=== PATIENT | male | born 1960 | race Caucasian/White ===

== ENCOUNTER 2019-09-09 07:08 | Outpatient (CLI) | payer OTHER, SELFPAY ==
--- NOTE | ~2019-09-09 | CT_ITS ---
EXAMINATION: CT abdomen pelvis w con DATE: 09/09/2019 07:43 INDICATION: Anal cancer restaging TECHNIQUE: Computed tomography (CT) of the abdomen and pelvis was performed with 100 cc Omnipaque 350 intravenous contrast. Automated exposure control and iterative reconstruction technique were employe d. Exam dose: 491.30 mGy-cm total exam DLP. COMPARISON: 01/22/2019 CT abdomen pelvis 03/13/2018 PET/CT scan 07/02/2018 CT abdomen pelvis FINDINGS: The lung bases are clear. Normal heart size. No pericardial or pleural effusion. There is no significant change is previously reported approximately 8 small hypoattenuating lesions o f the liver; stability since 01/22/2019 and lack of apparent enhancement favor benign stable hepatic c ysts. No interval hepatic space-occupying mass lesion is detected. Normal splenic size. No pancreatic mass lesion, calcification or ductal dilatation. The gallbladder is contracted. No bile duct dilatation. The adrenal glands appear normal. Stable 7 mm nonobstructing left renal calculus. No renal mass lesion or ureteral calculus or hydroure teronephrosis. There is diffuse mild thickening of the urinary bladder wall. The prostate gland and s eminal vesicles appear unremarkable. There is atherosclerotic calcification of the abdominal aorta and branches but no abdominal aortic an eurysm. No intraperitoneal or retroperitoneal or pelvic mass lesion or adenopathy or ascites. No bowel obstruction, pneumatosis or intraperitoneal free air. Stable mild rectal wall thickening compared to 01/22/2019, which may be related to postsurgical and/or postradiation change. No interval new soft tissue thickening of the bowel wall is detected. Normal a ppendix. Status post left inguinal herniorrhaphy. No suspicious osteolytic or osteoblastic lesions are identified. Scattered small osteosclerotic lesio ns are likely bone islands, stable since prior examinations. IMPRESSION: No apparent recurrent or metastatic disease; no significant change since 01/22/2019 Reviewed, dictated and finalized at [facility]. Reviewed, dictated and finalized at [facility].
[2019-09-09 07:32] LABS: Estimated Glomerular Filt Rate > 60
== END 2019-09-09 07:09 | disposition home or self-care (01) ==
PROVIDERS: PCP Internal Medicine; Visit Provider Internal Medicine Hematology & Oncology
DX: C21.0 Malignant neoplasm of anus, unspecified (principal)
CPT/HCPCS: 36415; 74177; Q9967

== ENCOUNTER 2019-09-19 09:43 | Outpatient (CLI) | payer OTHER, SELFPAY ==
[2019-09-19 09:56] LABS: Basophils Percent Auto 0.3 % (0.2-1.2); Eosinophils Absolute Auto 0.2 K/mm3 (0-0.3); Eosinophils Percent Auto 2.4 % (0-4.4); Hematocrit 38.7 % (42.0-52.0); Immature Granulocyte Absolute 0.02 K/mm3 (0.00-0.031); Immature Granulocyte Percent A 0.3 % (0-0.5); Lymphocytes Absolute Auto 0.84 K/mm3 (0.9-3.2); Lymphocytes Percent Auto 11.2 % (18.3-44.2); Mean Corpuscular HGB Conc 33.6 g/dl (32-36); Mean Corpuscular Hemoglobin 34.3 pg (26-34); Mean Corpuscular Volume 102.1 fl (80-100); Mean Platelet Volume 8.3 fl (7.4-10.4); Monocytes Absolute Auto 0.8 K/mm3 (0.1-0.6); Monocytes Percent Auto 11.1 % (2.6-8.5); Neutrophils Absolute Auto 5.6 K/mm3 (1.3-6.7); Neutrophils Percent Auto 74.7 % (45.5-73.1); Platelet Count Result 404 k/mm3 (150-375); Red Blood Count 3.79 M/mm3 (4.6-6.20); Red Cell Distribution Width 12.7 % (11.5-14.5); White Blood Count 7.5 K/mm3 (4.5-10.0)
[2019-09-19 09:59] LABS: Blood Urea Nitrogen 17 mg/dL (8-26); Carbon Dioxide 29 mmol/L (22-30); Chloride 99 mmol/L (98-109); Estimated Glomerular Filt Rate > 60; Glucose 111 mg/dL (70-105); Potassium 3.8 mmol/L (3.5-4.9); Sodium 140 mmol/L (138-146)
[2019-09-19 10:36] LABS: Alanine Aminotransferase 16 U/L (4-50); Albumin Level 4.2 g/dL (3.5-5.1); Alkaline Phosphatase 102 U/L (38-126); Anion Gap 12.2 mmol/L (7-16); Aspartate Amino Transferase 22 U/L (17-59); Bilirubin,Total 0.3 mg/dL (0.2-1.3); Blood Urea Nitrogen 19 mg/dL (9-20); Calcium 9.9 mg/dL (8.4-10.2); Carbon Dioxide 29 mmol/L (22-30); Chloride 101 mmol/L (98-107); Estimated Glomerular Filt Rate > 60; Glucose 112 mg/dL (75-110); Potassium 4.2 mmol/L (3.4-5.0); Sodium 138 mmol/L (137-145)
== END 2019-09-19 09:44 | disposition home or self-care (01) ==
LOC: ANHLAB 09:45
PROVIDERS: PCP Internal Medicine; Visit Provider Internal Medicine Hematology & Oncology
DX: C21.0 Malignant neoplasm of anus, unspecified (principal)
CPT/HCPCS: 36415; 80048; 80053; 85025

== ENCOUNTER 2020-08-19 21:15 | Emergency (ER) | payer SELFPAY ==
--- NOTE | ~2020-08-19 | XR_ITS ---
EXAMINATION: XR chest 2V EXAM DATE: 08/19/2020 21:44 INDICATION: Muscle cramping, weakness, shortness of breath. TECHNIQUE: Frontal and lateral projections of the chest obtained and reviewed. Comparison is made to prior examination from 10/20/2013. FINDINGS: The lungs are clear. There are no pleural effusions. The cardiomediastinal silhouette is within normal limits. There is no pneumothorax suspected. Moderate sized bridging thoracic endplate osteophytes, diffuse idiopathic skeletal hyperostosis. IMPRESSION: No acute cardiopulmonary findings. Reviewed, dictated and finalized at [facility].
[2020-08-19 21:17] VITALS: BP 137/91; PULSE 112; RESP 19; TEMP 36.2; O2SAT 100
[2020-08-19 21:37] LABS: Basophils Percent Auto 0.3 % (0.2-1.2); Eosinophils Percent Auto 0.4 % (0-4.4); Hematocrit 38.8 % (42.0-52.0); Hemoglobin 13.5 g/dL (14.0-18.0); Immature Granulocyte Absolute 0.06 K/mm3 (0.00-0.031); Immature Granulocyte Percent A 0.8 % (0-0.5); Lymphocytes Absolute Auto 0.75 K/mm3 (0.9-3.2); Lymphocytes Percent Auto 10.3 % (18.3-44.2); Mean Corpuscular HGB Conc 34.8 g/dl (32-36); Mean Corpuscular Hemoglobin 35.4 pg (26-34); Mean Corpuscular Volume 101.8 fl (80-100); Mean Platelet Volume 8.9 fl (7.4-10.4); Monocytes Absolute Auto 0.8 K/mm3 (0.1-0.6); Monocytes Percent Auto 10.7 % (2.6-8.5); Neutrophils Absolute Auto 5.7 K/mm3 (1.3-6.7); Neutrophils Percent Auto 77.5 % (45.5-73.1); Platelet Count Result 363 k/mm3 (150-375); Red Blood Count 3.81 M/mm3 (4.6-6.20); Red Cell Distribution Width 12.6 % (11.5-14.5); White Blood Count 7.3 K/mm3 (4.5-10.0)
[2020-08-19 21:48] LABS: Alanine Aminotransferase 149 U/L (4-50); Albumin Level 4.2 g/dL (3.5-5.1); Alkaline Phosphatase 91 U/L (38-126); Anion Gap 10 mmol/L (8-16); Aspartate Amino Transferase 147 U/L (17-59); Blood Urea Nitrogen 15 mg/dL (9-20); Calcium 9.3 mg/dL (8.4-10.2); Carbon Dioxide 23 mmol/L (22-30); Chloride 98 mmol/L (98-107); Estimated CRCL calculation 50 ml/min; Estimated Glomerular Filt Rate 48; Glucose 145 mg/dL (75-110); Potassium 3.6 mmol/L (3.4-5.0); Sodium 131 mmol/L (137-145)
[2020-08-19 21:56] LABS: Magnesium 1.6 mg/dL (1.6-2.3)
[2020-08-19 22:00] VITALS: BP 113/80; PULSE 92; RESP 16; O2SAT 100
--- NOTE | 2020-08-19 22:21 | ED.GENADULT ---
HPI - General Adult General Chief complaint: Unspecified Stated complaint: whole body cramping Time Seen by Provider: 08/19/20 21:44 Source: patient Mode of arrival: ambulatory Limitations: no limitations History of Present Illness HPI narrative: Patient is a 60-year-old male complaining of cramping, upper extremities lower extremities and bilateral flank area that started tonight after working outside in the heat the whole day and noticed that his urine is also dark, claims that he has not drank enough fluid throughout the day. Patient denies any chest pain, shortness of breath, abdominal pain, nausea, vomiting, diarrhea, fever or chills. Related Data Home Medications Medication Instructions Recorded Confirmed lisinopril 20 1 tablet PO DAILY 02/14/19 mg-hydrochlorothiazide 25 mg tablet sildenafil 100 mg tablet 100 mg PO DAILY 02/14/19 Allergies Allergy/AdvReac Type Severity Reaction Status Date / Time No Known Allergies Allergy Verified 08/19/20 21:22 Review of Systems Review of Systems: All systems reviewed & are unremarkable except as noted in HPI and below Constitutional: Constitutional: Denies body ache(s), Denies chills, Denies excessive sweating, Denies fatigue, Denies fever(s), Denies headache(s), Denies lethargy, Denies malaise, Denies weakness and Denies weight loss Eyes: Eyes: Denies blurry vision, Denies change in vision and Denies loss of vision ENT: Denies dizziness, Denies ear discharge, Denies headache(s), Denies lip swelling, Denies epistaxis, Denies nasal congestion, Denies neck pain, Denies throat swelling and Denies tongue swelling Cardiovascular: Cardiovascular: Denies chest pain, Denies chest pain at rest, Denies chest pain with activity, Denies diaphoresis, Denies rapid heart rate, Denies edema, Denies irregular heart rhythm, Denies lightheadedness, Denies palpitations, Denies dyspnea and Denies dyspnea on exertion Respiratory: Respiratory: Denies chest congestion, Denies cough, Denies hemoptysis, Denies dyspnea and Denies dyspnea on exertion Gastrointestinal: Gastrointestinal: Denies abdominal pain, Denies melena, Denies hematochezia, Denies diarrhea, Denies nausea, Denies vomiting and Denies hematemesis Musculoskeletal: Musculoskeletal: Denies abnormal gait, Denies deformity, Denies joint swelling, Denies limited range of motion, Denies neck pain and Denies numbness Neurologic: Denies Abnormal speech present, Denies abnormal gait, Denies confusion, Denies dizziness, Denies headache(s), Denies focal weakness, Denies loss of vision, Denies numbness, Denies Other visual disturbances, Denies Sensory deficit (Neuro) and Denies weakness Psychiatric: Psychiatric: Denies confusion, Denies depression, Denies auditory hallucinations, Denies homicidal ideation and Denies suicidal ideation Endocrine: Endocrine: Denies cold intolerance, Denies excessive sweating, Denies fatigue, Denies heat intolerance and Denies palpitations Hematologic/Lymphatic: Hematologic/Lymphatic: Denies easy bleeding and Denies easy bruising Allergic/Immunologic: Allergic/Immunologic: Denies lip swelling, Denies throat swelling and Denies tongue swelling PMFSH Past Medical History Medical History (Updated 08/19/20 @ 23:35 by Alonso Austin MD) Anal cancer 04/03/18 Squamous cell carcinoma 03/02/18 Surgical History Surgical History History of hernia repair Family History Family History Mother Family history of lung cancer Social History Social History Smoking packs per day: 1 Smoking cigarettes per day: 20.0 Smoking status: Current some day smoker Tobacco type: cigarettes Alcohol intake: current Gender identity (if verbalized by the patient): Male Exam Const: General: cooperative, healthy appearing, comfortable, no acute distress,
[2020-08-19] MEDS: LACTATED RINGERS 1,000 ML 999 ML IV CONT (22:37)
[2020-08-19 22:38] LABS: Creatine Kinase 76 U/L (55-170)
[2020-08-19 23:00] VITALS: BP 132/91; PULSE 87; RESP 16; O2SAT 100
[2020-08-19] MEDS: SODIUM CHLORIDE 0.9% IV 1,000 ML 999 ML IV CONT (23:47)
[2020-08-20] VITALS: BP 139/94; PULSE 80; RESP 16; O2SAT 100
== END 2020-08-20 00:30 | disposition home or self-care (01) ==
PROVIDERS: Emergency Medicine; Emergency Provider Emergency Medicine; PCP Internal Medicine
DX: E86.0 Dehydration (principal); N17.9 Acute kidney failure, unspecified; C21.0 Malignant neoplasm of anus, unspecified; F17.210 Nicotine dependence, cigarettes, uncomplicated
CPT/HCPCS: 36415; 71046; 80053; 82550; 83735; 85025; 96360; 96361; 99283; J7030; J7120

== ENCOUNTER 2021-05-20 10:53 | Emergency (ER) | payer SELFPAY ==
[2021-05-20 10:56] VITALS: BP 161/87; PULSE 112; RESP 20; TEMP 35.9; O2SAT 100
--- NOTE | 2021-05-20 11:06 | PC.NURSE ---
PT REPORTS LUMP TO BACK THAT HAS BEEN THERE FOR YEARS AND HE IS ABLE TO SQUEEZE THICK STINKY WHITE STUFF OUT REPORTS THIS TIME IT IS RED, PAINFUL AND BIGGER. CONCERNED BECAUSE REDNESS STREAKING DOWN BACK
--- NOTE | 2021-05-20 12:04 | ED.SKABFB ---
HPI - Skin/Abscess/Foreign Bdy General Chief complaint: Skin/Abscess/Foreign Body Stated complaint: back abscess Time Seen by Provider: 05/20/21 11:04 History of Present Illness HPI narrative: 61-year-old male presents to the emergency room with a large abscess to his mid thoracic region. Patient states he has had a history of sebaceous cyst in the same area is frequently had to have it lanced and drained. Related Data Home Medications Medication Instructions Recorded Confirmed lisinopril 20 1 tablet PO DAILY 02/14/19 mg-hydrochlorothiazide 25 mg tablet sildenafil 100 mg tablet 100 mg PO DAILY 02/14/19 Allergies Allergy/AdvReac Type Severity Reaction Status Date / Time No Known Allergies Allergy Verified 05/20/21 10:56 Review of Systems Review of Systems: CONSTITUTIONAL: Denies fever, chills, or sweats. EYES: Denies visual changes, redness, or discharge. ENT: Denies rhinorrhea, congestion, sore throat, or otalgia. CARDIOVASCULAR: Denies chest pain, palpitations, or edema. RESPIRATORY: Denies cough or dyspnea. GASTROINTESTINAL: Denies abdominal pain, nausea, vomiting, or diarrhea. GENITOURINARY: Denies dysuria or hematuria. SKIN: Abscess to back MUSCULOSKELETAL: Denies back pain, joint pain, or myalgia. NEUROLOGIC: Denies headache, numbness, dizziness, or weakness. PSYCHIATRIC: Denies anxiety or depression. [facility] Past Medical History Medical History (Updated 05/20/21 @ 12:09 by Carlos Espinosa APRN) Anal cancer 04/03/18 Squamous cell carcinoma 03/02/18 Surgical History Surgical History History of hernia repair Family History Family History Mother Family history of lung cancer Social History Social History Smoking packs per day: 1 Smoking cigarettes per day: 20.0 Smoking status: Current some day smoker Tobacco type: cigarettes Alcohol intake: current Gender identity (if verbalized by the patient): Male Exam Narrative: GENERAL: Well-appearing, well-nourished, and in no acute distress. HEAD: Normocephalic, atraumatic. EYES: PERRLA and EOMI. CHEST: Clear to auscultation. No respiratory distress. No wheezes rales or rhonchi HEART: Regular rate and rhythm. No murmur heard. Normal peripheral pulses. EXTREMITIES: Normal range of motion. No edema. SKIN: 4 cm fluctuant abscess to the mid thoracic area with surrounding erythema. NEURO: No focal deficits. Alert and oriented x3. PSYCH: Normal mood and affect. Course Course Emergency Course: Large abscess was anesthetized with lidocaine 1%. 11 blade scalpel was used to open up the wound. Large amount of purulent drainage was expressed. Quarter-inch iodoform packing used Vital Signs Vital signs: Vital Signs Temperature 35.9 C L 05/20/21 10:56 Pulse Rate 112 H 05/20/21 10:56 Respiratory Rate 20 05/20/21 10:56 Blood Pressure 161/87 H 05/20/21 10:56 Pulse Oximetry 100 05/20/21 10:56 Temperature 35.9 C L 05/20/21 10:56 Pulse Rate 112 H 05/20/21 10:56 Respiratory Rate 20 05/20/21 10:56 Blood Pressure 161/87 H 05/20/21 10:56 Pulse Oximetry 100 05/20/21 10:56 Procedures Abscess I/D back: Date of Incision: 05/20/21 Time of Incision: 12:06 Local Anesthetic: lidocaine 1% and with epi Amount of anesthesia used (mL): 6 Technique: incised with #11 blade Amount of fluid expressed (mL): 10 Irrigation: Yes Packing used?: iodoform I&D Results: Pus Discharge Plan Discharge Clinical Impression: Abscess of skin or subcutaneous tissue Patient Disposition: Home, Self-Care Condition: Stable Instructions: Antibiotic Form, Abscess (ED) Additional Instructions: Follow-up with your primary care doctor tomorrow or the urgent care on Monday to have the packing removed. May take Bunny
[2021-05-20] MEDS: LIDOCAINE/EPINEPHRINE 0.5%/1:200,000 50 ML VIAL (12:17)
[2021-05-20 12:51] VITALS: BP 144/74; PULSE 76; RESP 16; TEMP 36.8; O2SAT 97
== END 2021-05-20 12:52 | disposition home or self-care (01) ==
PROVIDERS: Emergency Provider Nurse Practitioner Family; PCP Internal Medicine
DX: L02.212 Cutaneous abscess of back [any part, except buttock and flank] (principal); Z85.828 Personal history of other malignant neoplasm of skin; Z85.048 Personal history of other malignant neoplasm of rectum, rectosigmoid junction, and anus; F17.210 Nicotine dependence, cigarettes, uncomplicated
CPT/HCPCS: 10061; 99283

== ENCOUNTER 2022-11-18 07:29 | Outpatient (CLI) | payer OTHER, SELFPAY ==
--- NOTE | ~2022-11-18 | CT_ITS ---
EXAMINATION: CT abdomen pelvis w con DATE: 11/18/2022 07:53 INDICATION: History of anal cancer TECHNIQUE: Computed tomography (CT) of the abdomen and pelvis was performed with 100 cc Omnipaque 350 intravenous contrast. The dose-length product was 431.36 mGy-cm. Automated exposure control and iter ative reconstruction technique were employed. COMPARISON: CT dated 09/09/2019 FINDINGS: There are small subcentimeter hypodensities in the liver, too small to characterize, althou gh without significant interval change, most likely benign. The spleen, pancreas, adrenal glands and kidneys are unremarkable. Gallbladder is present. Lung bases are unremarkable. Nonobstructive bowel g as pattern. Moderate colonic fecal loading. There is eccentric mild thickening of the rectum no lymph adenopathy. There are nonobstructing left renal stones. Fatty infiltration of the liver. There is a right renal cysts. Moderate lumbar spondylosis. No signif icant vascular abnormality. No lymphadenopathy. IMPRESSION: 1. Mild eccentric thickening of the rectum. Considerations include is posttreatment change. Correlate for history of radiation or previous surgery. Residual/recurrent malignancy not excluded. Recommend clinical correlation. Reviewed, dictated and finalized at [facility]. IMPRESSION: 1. Mild eccentric thickening of the rectum. Considerations include is posttreat ment change. Correlate for history of radiation or previous surgery. Residual/r ecurrent malignancy not excluded. Recommend clinical correlation.
[2022-11-18 07:50] LABS: Estimated Glomerular Filt Rate > 60
== END 2022-11-18 07:30 | disposition home or self-care (01) ==
LOC: ANHIMG 07:32
PROVIDERS: PCP Nurse Practitioner; Visit Provider Nurse Practitioner
DX: C21.0 Malignant neoplasm of anus, unspecified (principal)
CPT/HCPCS: 74177; Q9967

== ENCOUNTER 2022-12-21 02:19 | Day surgery (SDC) | payer OTHER, SELFPAY ==
[2022-12-14 12:27] VITALS: BMI 25.9
--- NOTE | 2022-12-20 10:20 | PM.HPGS ---
History of Present Illness History of Present Illness Consent: Risks, benefits, and alternatives have been discussed and questions answered. Patient agrees to proceed with procedure. Chief complaint: Malignant neoplasm of anus,Unspecified Narrative: Des Zuñiga is a 62 year old male who has a history of metastatic anal squamous cell carcinoma status post left groin lymph node biopsy on 01-30-18. 2/2 lymph node positive for malignancy. Status post sigmoidoscopy and anal fissure biopsy positive for high grade anal intraepithelial neoplasm with P 16+1 on lymph node. He was treated with Xeloda and mitomycin along with radiation therapy completed on May 25, 2018.? Review of Systems Review of Systems: All systems reviewed & are unremarkable except as noted in HPI and below PMFSH Past Medical History Medical History Anal cancer 04/03/18 Dyslipidemia Encounter for other specified surgical aftercare Essential hypertension Left groin mass Metastatic squamous cell carcinoma Non-recurrent unilateral inguinal hernia without obstruction or gangrene Squamous cell carcinoma 03/02/18 Surgical History Surgical History History of hernia repair Family History Family History Mother Family history of lung cancer Social History Social History Smoking packs per day: 1 Smoking cigarettes per day: 20.0 Years smoked: 45 Smoking pack-years: 45.00 Smoking status: Current every day smoker Tobacco type: cigarettes Alcohol intake: current Drinks per week: 18 Alcohol use details: BEER Substance use: never Substance use type: does not use Other substance usage details: ocassionally Lack of Transportation: No Lack of Food: Never True Current Housing: I Have Housing Concerned About Future Housing: No Difficulty Paying Gas/Electric Bills: No Difficulty Paying for Meds: No Currently Unemployed: No Education: High School Diploma/GED Difficulty w/ Childcare or Family Care: No Living arrangements: with family Gender identity (if verbalized by the patient): Male Spiritual care concerns: No Meds Home Medications and Allergies Home Medications Medication Instructions Recorded Confirmed Type sildenafil 100 mg tablet 100 mg PO DAILY PRN sexual 09/01/21 12/21/22 Rx activity #30 tabs lisinopril 20 1 tablet PO DAILY #90 tabs 09/05/22 12/21/22 Rx mg-hydrochlorothiazide 25 mg tablet omeprazole 40 mg capsule,delayed 40 mg PO DAILY #90 caps 09/05/22 12/21/22 Rx release atorvastatin 20 mg tablet 20 mg PO DAILY #30 tabs 09/06/22 12/21/22 Rx Allergies Allergy/AdvReac Type Severity Reaction Status Date / Time No Known Allergies Allergy Verified 12/21/22 07:41 Exam Resp: Auscultation: clear to auscultation bilaterally Cardio: Rate: regular rate Rhythm: regular rhythm GI: GI Palp: Yes Soft to palpation and No Tenderness to palpation present (GI) Assessment and Plan Assessment and plan (1) Encounter for screening for malignant neoplasm of colon: Code(s): Z12.11 - Encounter for screening for malignant neoplasm of colon Status: Acute Assessment and Plan: Colonoscopy with possible biopsy or polypectomy or cautery or injection of substances.
[2022-12-21 07:42] VITALS: BP 145/96; PULSE 77; RESP 18; TEMP 36.2; O2SAT 96; BMI 24.8
[2022-12-21] MEDS: LACTATED RINGERS 1,000 ML 150 ML IV CONT (07:50)
--- NOTE | 2022-12-21 08:34 | WPDANESEPPF ---
Anes - Initial Pre Proc Eval Procedure: Operation Date: 12/21/22 09:00 Proposed Procedures p Colonoscopy - Gt Gonzalez MD Date/Time: 12/21/22 08:34 Surgeon: Gt Gonzalez MD Pre Op Diagnosis: Malignant neoplasm of anus,Unspecified Patient Data Age: 62 Gender: M Height: 1.78 m Weight: 78.5 kg Last Vital Signs Temp 97.1 F L 12/21/22 07:42 Pulse 77 12/21/22 07:42 Resp 18 12/21/22 07:42 BP 145/96 H 12/21/22 07:42 Pulse Ox 96 12/21/22 07:42 O2 Del Method Room Air 12/21/22 07:42 Allergies Allergy/AdvReac Type Severity Reaction Status Date / Time No Known Allergies Allergy Verified 12/21/22 07:41 Home Medications Medication Instructions Recorded Confirmed Type sildenafil 100 mg tablet 100 mg PO DAILY PRN sexual 09/01/21 12/21/22 Rx activity #30 tabs lisinopril 20 1 tablet PO DAILY #90 tabs 09/05/22 12/21/22 Rx mg-hydrochlorothiazide 25 mg tablet omeprazole 40 mg capsule,delayed 40 mg PO DAILY #90 caps 09/05/22 12/21/22 Rx release atorvastatin 20 mg tablet 20 mg PO DAILY #30 tabs 09/06/22 12/21/22 Rx Patient hx anesthesia problems: none Family hx anesthesia problems: none Results Review: All pre-operative results and documents have been reviewed as part of the pre-operative evaluation. [facility] Past Medical History Medical History Anal cancer 04/03/18 Dyslipidemia Encounter for other specified surgical aftercare Essential hypertension Left groin mass Metastatic squamous cell carcinoma Non-recurrent unilateral inguinal hernia without obstruction or gangrene Squamous cell carcinoma 03/02/18 Surgical History Surgical History History of hernia repair Family History Family History Mother Family history of lung cancer Social History Social History Smoking packs per day: 1 Smoking cigarettes per day: 20.0 Years smoked: 45 Smoking pack-years: 45.00 Smoking status: Current every day smoker Tobacco type: cigarettes Alcohol intake: current Drinks per week: 18 Alcohol use details: BEER Substance use: never Substance use type: does not use Other substance usage details: ocassionally Lack of Transportation: No Lack of Food: Never True Current Housing: I Have Housing Concerned About Future Housing: No Difficulty Paying Gas/Electric Bills: No Difficulty Paying for Meds: No Currently Unemployed: No Education: High School Diploma/GED Difficulty w/ Childcare or Family Care: No Living arrangements: with family Gender identity (if verbalized by the patient): Male Spiritual care concerns: No Anes - Eval Final PreProcedure Day of Procedure 12/21/22 08:34 Patient weight: normal Heart: regular rate and rhythm Lungs: clear to auscultation Airway: Mallampati scale class II Neurological: alert and oriented Last oral intake: >/= 8 hours ASA classification: III Emergent: no Anesthetic plan: proceed Anesthesia type and monitoring: general GIVS and standard monitoring Results Review: All pre-operative results and documents have been reviewed as part of the pre-operative evaluation. Informed Consent: The patient's anesthetic plan and its attendant risks and benefits were discussed with the patient/family/POA. Questions were solicited and answers provided to the satisfaction of the patient/family/POA.
[2022-12-21 09:02] VITALS: BP 125/79; PULSE 90; RESP 23; O2SAT 100
[2022-12-21 09:12] VITALS: BP 122/81; PULSE 90; RESP 14; O2SAT 100
[2022-12-21 09:22] VITALS: BP 138/91; PULSE 80; RESP 20; O2SAT 100
== END 2022-12-21 09:26 | disposition home or self-care (01) ==
PROVIDERS: PCP Nurse Practitioner; Visit Provider Internal Medicine Gastroenterology
PROC: 0DJD8ZZ Inspection of Lower Intestinal Tract, Via Natural or Artificial Opening Endoscopic (ICD-10-PCS; CPT 45378; principal; 2022-12-21 09:00)
DX: Z12.11 Encounter for screening for malignant neoplasm of colon (principal); D12.5 Benign neoplasm of sigmoid colon; D12.8 Benign neoplasm of rectum; K64.8 Other hemorrhoids; Z85.048 Personal history of other malignant neoplasm of rectum, rectosigmoid junction, and anus; I10 Essential (primary) hypertension; E78.5 Hyperlipidemia, unspecified; F17.210 Nicotine dependence, cigarettes, uncomplicated
CPT/HCPCS: 45385; 88305; J2001; J2704; J7120